=== PATIENT | female | born 1955 | race African-American/Black ===

== ENCOUNTER 2020-07-29 19:11 | Emergency (ER) | payer SELFPAY ==
[~2020-07-29] VITALS: Ht 165.1 cm; Wt 58.0 kg
[2020-07-29 23:01] VITALS: BP 127/86
== END 2020-07-29 23:04 | disposition home or self-care (01) ==
LOC: ER 19:11
DX: R07.81 Pleurodynia (principal); I10 Essential (primary) hypertension; Z88.6 Allergy status to analgesic agent
CPT/HCPCS: 71101; 99283

== ENCOUNTER 2023-04-04 23:08 | Inpatient (IN) | payer BC, MEDICARE ==
[~2023-04-04] VITALS: Ht 165.1 cm; Wt 54.4 kg
[2023-04-04 23:55] LABS: CHLORIDE 108 mEq/L (98-107)
[2023-04-04 23:58] LABS: BASOPHILS % 0.7 % (0.0-2.0); EOSINOPHILS % 1.4 % (0.0-5.0); LYMPHOCYTES % 46.2 % (20.0-50.0); MEAN CORPUSCULAR VOLUME 86.9 fL (81.0-99.0); MEAN PLATELET VOLUME 7.9 fl (7.4-10.4); MONOCYTES % 8.7 % (2.0-8.0); PLATELET 243 x1000/uL (130-400); RED BLOOD CELL COUNT 4.49 mill/uL (4.2-5.4); RED CELL DISTRIBUTION WIDTH 13.5 % (11.6-14.6)
[2023-04-05] MEDS ORDERED: ASPIRIN 325MG EC TABLET PO ONE (01:30)
[2023-04-05 01:59] LABS: D-DIMER < 0.19 mg/L FEU (<0.50); PROTHROMBIN TIME 11.1 sec (9.6-11.0)
[2023-04-05 06:39] LABS: CLARITY URINE CLEAR (CLEAR); COLOR URINE YELLOW (YELLOW); KETONES URINE NEGATIVE (NEGATIVE); LEUKOCYTE ESTERASE URINE 3+ (NEGATIVE); NITRITE URINE NEGATIVE (NEGATIVE); OCCULT BLOOD URINE NEGATIVE (NEGATIVE); PH URINE 6.5 (4.5-8.0); PROTEIN URINE NEGATIVE (NEGATIVE); UROBILINOGEN URINE 0.2 E.U./dL (0.2-1.0)
[2023-04-05 09:00] VITALS: BP 130/56; PULSE 18; RESP 18; TEMP 96.9
[2023-04-05] MEDS ORDERED: AMLODIPINE 5MG TABLET PO SCH (09:15)
[2023-04-05] MEDS ORDERED: ONDANSETRON HCL 4MG/2ML INJ IV PRN (09:15)
[2023-04-05] MEDS ORDERED: CEFTRIAXONE 1GM PREMIX 50 ML IV NR (09:15)
[2023-04-05 09:30] VITALS: BP 130/56; PULSE 64; RESP 18; TEMP 96.9
[2023-04-05] MEDS ORDERED: ASPIRIN 81MG EC TABLET PO NR (10:00)
[2023-04-05 12:00] VITALS: BP 162/57; PULSE 56; RESP 18; TEMP 97.5
[2023-04-05] MEDS: NITROGLYCERIN OINT 1GM/INCH UDPKT TD SCH ×2 (14:20→22:29)
[2023-04-05] MEDS: ENOXAPARIN 40MG/0.4ML SYR SUBCUT SCH (14:20)
[2023-04-05] MEDS: CEFTRIAXONE 1,000 MG in DEXTROSE 5% WATER 50 ML IV SCH (14:21)
[2023-04-05 16:00] VITALS: BP 140/84; PULSE 64; RESP 18; TEMP 98.6
[2023-04-05 16:17] LABS: BASOPHILS % 0.5 % (0.0-2.0); EOSINOPHILS % 1.1 % (0.0-5.0); HEMATOCRIT. 38.9 % (36.0-48.0); LYMPHOCYTES % 36.1 % (20.0-50.0); MEAN CORPUSCULAR HEMOGLOBIN 29.2 pg (28.0-32.0); MEAN CORPUSCULAR VOLUME 87.2 fL (81.0-99.0); MEAN PLATELET VOLUME 8.5 fl (7.4-10.4); MONOCYTES % 8.8 % (2.0-8.0); NEUTROPHILS % 53.5 % (40.0-76.0); PLATELET 259 x1000/uL (130-400); RED BLOOD CELL COUNT 4.46 mill/uL (4.2-5.4); RED CELL DISTRIBUTION WIDTH 13.7 % (11.6-14.6)
[2023-04-05 16:27] LABS: CHLORIDE 106 mEq/L (98-107)
[2023-04-05 16:37] LABS: HDL CHOLESTEROL 77 mg/dL (40-59); LDL CHOLESTEROL 131 mg/dL (5-100)
[2023-04-05] MEDS: AMLODIPINE 5MG TABLET PO SCH (17:00)
[2023-04-05 20:00] VITALS: BP 131/85; PULSE 65; RESP 20; TEMP 97
[2023-04-05] MEDS: CLONIDINE 0.1MG TABLET PO SCH ×2 (21:00→21:09)
[2023-04-06] VITALS: BP 121/75; PULSE 58; RESP 18; TEMP 97.7
[2023-04-06] MEDS: ACETAMINOPHEN 325MG TABLET PO PRN ×2 (01:53→10:49)
[2023-04-06 04:00] VITALS: BP 125/71; PULSE 60; RESP 18; TEMP 97.4
[2023-04-06 05:46] LABS: BASOPHILS % 0.4 % (0.0-2.0); EOSINOPHILS % 1.9 % (0.0-5.0); HEMATOCRIT. 36.2 % (36.0-48.0); HEMOGLOBIN. 12.3 g/dL (12.0-16.0); LYMPHOCYTES % 37.9 % (20.0-50.0); MEAN CORPUSCULAR HEMOGLOBIN 29.4 pg (28.0-32.0); MEAN CORPUSCULAR VOLUME 86.4 fL (81.0-99.0); MEAN PLATELET VOLUME 8.1 fl (7.4-10.4); MONOCYTES % 9.7 % (2.0-8.0); NEUTROPHILS % 50.1 % (40.0-76.0); PLATELET 226 x1000/uL (130-400); RED BLOOD CELL COUNT 4.19 mill/uL (4.2-5.4); RED CELL DISTRIBUTION WIDTH 13.4 % (11.6-14.6)
[2023-04-06 05:50] LABS: CHLORIDE 111 mEq/L (98-107)
[2023-04-06] MEDS ORDERED: ACETAMINOPHEN 500MG TABLET PO NR (06:15)
[2023-04-06] MEDS: NITROGLYCERIN OINT 1GM/INCH UDPKT TD SCH (06:17)
[2023-04-06 08:00] VITALS: BP 138/70; PULSE 72; RESP 18; TEMP 97.6
[2023-04-06] MEDS: AMLODIPINE 5MG TABLET PO SCH (08:43)
[2023-04-06] MEDS ORDERED: SODIUM CHLORIDE 0.9% 1,000 ML IV SCH (09:00)
[2023-04-06] MEDS ORDERED: ASPIRIN 81MG EC TABLET PO SCH (09:00)
[2023-04-06] MEDS ORDERED: CEFTRIAXONE 1,000 MG in DEXTROSE 5% WATER 50 ML IV SCH (09:00)
[2023-04-06] MEDS ORDERED: IOHEXOL-350 100 ML BOTTLE ONE (10:44)
[2023-04-06] MEDS: CEFTRIAXONE 1,000 MG in DEXTROSE 5% WATER 50 ML IV SCH (11:33)
[2023-04-06 12:00] VITALS: BP 147/78; PULSE 56; RESP 18; TEMP 98
[2023-04-06] MEDS ORDERED: NITROGLYCERIN SPRAY/4.9GM CAN TL ONE (12:00)
[2023-04-06] MEDS: ENOXAPARIN 40MG/0.4ML SYR SUBCUT SCH (12:20)
[2023-04-06 13:51] VITALS: BP 144/87; PULSE 58; TEMP 97.9; O2SAT 100
[2023-04-06] MEDS ORDERED: ATORVASTATIN CALCIUM 20MG TABLET PO SCH (21:00)
== END 2023-04-06 17:57 | disposition home or self-care (01) | DRG 313 ==
LOC: ER 23:08 → MICUSO 04-05 02:46 → EDBEDREQTM 04-05 02:51 → EDBEDREQ 04-05 02:51 → 8WST 04-05 09:20
PROVIDERS: ADMIT Internal Medicine; ATTEND Internal Medicine
DX: R07.89 Other chest pain (principal); I10 Essential (primary) hypertension; F17.210 Nicotine dependence, cigarettes, uncomplicated; R00.1 Bradycardia, unspecified; J44.9 Chronic obstructive pulmonary disease, unspecified; I25.2 Old myocardial infarction; Z88.5 Allergy status to narcotic agent; Z79.899 Other long term (current) drug therapy; Z71.6 Tobacco abuse counseling; Z82.49 Family history of ischemic heart disease and other diseases of the circulatory system; Z79.82 Long term (current) use of aspirin
CPT/HCPCS: 36415; 71045; 75571; 80048; 80053; 80061; 81003; 81025; 84484; 85025; 85379; 93005; 93306; 99285; J0696; J1650; J7030; J7060; Q9967